=== PATIENT | female | born 1990 | race Caucasian/White ===

== ENCOUNTER 2019-08-23 17:13 | Emergency (ER) | payer MEDICAID ==
[~2019-08-23] VITALS: Ht 157.5 cm; Wt 92.5 kg
[2019-08-23 17:23] VITALS: Ht 157.5 cm; Wt 92.5 kg
[2019-08-23 18:08] LABS: PLATELET COUNT 314 x10^3mcL (130-400)
[2019-08-23 18:15] LABS: CALCIUM 8.7 mg/dL (8.5-10.1); CARBON DIOXIDE 30.7 mmol/L (21-32); CHLORIDE SERUM 104 mmol/L (98-107); CREATININE SERUM 0.8 mg/dL (0.6-1.0); GFR1 > 60 mL/min; GLUCOSE SERUM 89 mg/dL (74-106); SODIUM SERUM 139 mmol/L (136-145)
[2019-08-23 18:20] LABS: ALKALINE PHOSPHATASE 86 U/L (46-116); ALT/SGPT 16 U/L (14-59); AST/SGOT 11 U/L (15-37); BILIRUBIN TOTAL 0.3 mg/dL (0.20-1.00); TOTAL PROTEIN, SERUM 7.3 g/dL (6.4-8.2)
[2019-08-23 18:23] LABS: ALBUMIN 3.1 g/dL (3.4-5.0)
[2019-08-23 18:42] LABS: BAND NEUTROPHIL 0 % (0-10); BASOPHIL 0 % (0-2); MONOCYTE 1 % (0-7); SEGMENTED NEUTROPHILS 68 % (37-75); rbc morphology (normal/abnorm) ABNORMAL (NORMAL)
[2019-08-24 00:04] VITALS: BP 134/79
== END 2019-08-24 00:05 | disposition home or self-care (01) ==
LOC: ED 17:13
PROVIDERS: Student in an Organized Health Care Education/Training Program
DX: I80.8 Phlebitis and thrombophlebitis of other sites (principal); R07.89 Other chest pain
CPT/HCPCS: 85378; J2270; Q0162; Q9967